=== PATIENT | female | born 1945 | race Caucasian/White ===

== ENCOUNTER 2020-08-02 12:29 | Day surgery (SDC) | payer MEDICARE ==
[2020-07-31 10:34] LABS: ALBUMIN 3.7 g/dL (3.4-5.0); ANION GAP 3 mmol/L (5-15); CALCIUM 9.7 mg/dL (8.5-10.1); CHLORIDE 107 mmol/L (98-107)
[2020-07-31 10:38] LABS: ALANINE AMINOTRANSFERASE 34 U/L (12-78); ALKALINE PHOSPHATASE 64 U/L (45-117); BILIRUBIN,TOTAL 0.7 mg/dL (0.2-1.0); CREATININE 0.78 mg/dL (0.55-1.02); TOTAL PROTEIN 7.4 g/dL (6.4-8.2)
[~2020-08-02] VITALS: Ht 157.5 cm; Wt 84.3 kg
[~2020-08-02 12:29] MED LIST: ASCO1CAP2 PO; ATOR10TA PO; BENA10TA59 PO; CALC-332 PO; CHOL10003 PO; EPINEPHRINE 1 MG/ML, 1ML ONE; FISH1CAP PO; GLUC1TAB21 PO; GUAI600T31 PO; HYDR12.517 PO; LANS15CA5 PO; LIDOCAINE/PF 1%, 30ML ONE; LORA-445 PO; MAGN250T9 PO; MULT400C3 PO; PHEN10TA36 PO; PRAS25CA6 PO; ROPIvacaine/PF 0.5%, 30 ML ONE; TRIA10.8 NAS; UBID100C24 PO
[2020-08-02 12:57] VITALS: BP 167/101
[2020-08-02] MEDS ORDERED: hydrALAzine 20 MG/ML, 1ML IV PRN (13:00)
[2020-08-02] MEDS ORDERED: HYDROmorphone 1 MG/ML, 1ML INJ IVPush PRN (13:00)
[2020-08-02] MEDS ORDERED: LABETALOL 5MG/ML, 20ML IV PRN (13:00)
[2020-08-02] MEDS ORDERED: EPHEDRINE 50 MG/ML, 1ML IVPush PRN (13:00)
[2020-08-02] MEDS ORDERED: LACTATED RINGERS 1,000 ML IV SCH (13:00)
[2020-08-02] MEDS ORDERED: ACETAMINOPHEN 500 MG TABLET PO ONE (13:00)
[2020-08-02] MEDS ORDERED: PROMETHAZINE 25 MG/ML, 1ML IVPush PRN (13:00)
[2020-08-02] MEDS ORDERED: ONDANSETRON 2MG/ML, 2ML IVPush PRN (13:00)
[2020-08-02] MEDS ORDERED: ACET-1600 PO (13:03)
[2020-08-02] MEDS ORDERED: CHLORHEXIDINE 15 ML UDC MM ONE (13:30)
[2020-08-02] MEDS ORDERED: PROPOFOL 50 ML ONE (15:21)
[2020-08-02] MEDS ORDERED: FENTANYL PF 100 MCG/2ML ONE ×2 (16:19→17:14)
[2020-08-02] MEDS ORDERED: PROPOFOL 10 MG/ML, 20ML ONE (16:21)
[2020-08-02] MEDS ORDERED: ONDANSETRON 2MG/ML, 2ML ONE ×2 (16:21→17:50)
[2020-08-02] MEDS ORDERED: CEFAZOLIN 1,000 MG ONE (16:21)
[2020-08-02] MEDS ORDERED: DEXAMETHASONE 4 MG/ML, 1ML ONE (16:21)
[2020-08-02] MEDS ORDERED: LIDOCAINE-MPF 2% ,5ML ONE (16:22)
[2020-08-02] MEDS ORDERED: KETOROLAC 30 MG/1 ML ONE (16:22)
[2020-08-02] MEDS ORDERED: hydrALAzine 20 MG/ML, 1ML ONE (16:42)
[2020-08-02] MEDS ORDERED: OXYcodone 5 MG/5 ML ORAL.SOL UDC ONE (17:14)
[2020-08-02] MEDS: FENTANYL PF 100 MCG/2ML IV PRN ×4 (17:16→17:49)
[2020-08-02] MEDS: OXYcodone 5 MG/5 ML ORAL.SOL UDC PO PRN ×2 (17:40→19:45)
[2020-08-02] MEDS ORDERED: PROMETHAZINE 25 MG/ML, 1ML ONE (17:50)
[2020-08-02] MEDS ORDERED: MEPERIDINE/PF 25MG/ML,1ML ONE (18:29)
== END 2020-08-02 20:50 | disposition home or self-care (01) ==
LOC: OR 12:29
PROVIDERS: ATTEND Orthopaedic Surgery
DX: S83.231A Complex tear of medial meniscus, current injury, right knee, initial encounter (principal); S83.271A Complex tear of lateral meniscus, current injury, right knee, initial encounter; M22.41 Chondromalacia patellae, right knee; M11.261 Other chondrocalcinosis, right knee; M17.11 Unilateral primary osteoarthritis, right knee; I10 Essential (primary) hypertension; E78.5 Hyperlipidemia, unspecified; Z20.822 Contact with and (suspected) exposure to COVID-19; Z79.899 Other long term (current) drug therapy; Z87.891 Personal history of nicotine dependence; Z82.61 Family history of arthritis; X58.XXXA Exposure to other specified factors, initial encounter; Y93.89 Activity, other specified; Y92.89 Other specified places as the place of occurrence of the external cause; Y99.8 Other external cause status
CPT/HCPCS: 29880; 36415; 80053; 93005; J0171; J0360; J0690; J1100; J1885; J2405; J2550; J2704; J2795; J3010; J7120; U0003